=== PATIENT | male | born 1980 | race Caucasian/White ===

== ENCOUNTER 2020-06-16 06:10 | Day surgery (SDC) | payer MEDICARE, MEDICAID ==
[2020-06-11 12:38] LABS: MEAN CORPUSCULAR HEMOGLOBIN 29.6 PG (27.0-31.0); MONOCYTES # (AUTO) 0.5 X10'3 (0-0.9); MONOCYTES % (AUTO) 8.8 % (2-12); PRE OP HEMOGLOBIN 14.6 g/dL (14.0-17.9)
[2020-06-11 12:40] LABS: BASOPHILS # (AUTO) 0.1 X10'3 (0-0.2); BASOPHILS % (AUTO) 0.9 % (0-1); EOSINOPHILS # (AUTO) 0.3 X10'3 (0-0.9); EOSINOPHILS % (AUTO) 4.2 % (0-6); LYMPHOCYTES # (AUTO) 1.7 X10'3 (1.1-4.8); LYMPHOCYTES % (AUTO) 26.8 % (21-51); MEAN CORPUSCULAR HGB CONC 33.4 g/dL (33.0-36.5); MEAN CORPUSCULAR VOLUME 88.5 FL (78-98); MEAN PLATELET VOLUME 10.1 FL (7.4-10.4); NEUTROPHILS # (AUTO) 3.7 X10'3 (1.8-7.7); NEUTROPHILS % (AUTO) 59.3 % (42-75); PRE OP HEMATOCRIT 43.7 % (42.0-52.0); RED BLOOD COUNT 4.94 X10'6 (4.70-6.10); RED CELL DISTRIBUTION WIDTH 13.8 % (11.5-14.5)
[2020-06-11 12:47] LABS: PRE OP PROTIME 10.3 SECONDS (9.0-12.0)
[2020-06-11 12:52] LABS: PRE OP GLUCOSE 94 MG/DL (70-104); PRE OP SODIUM 144 MMOL/L (135-145)
[2020-06-11 12:53] LABS: ALBUMIN 4.1 G/DL (3.4-5.0); ALBUMIN/GLOBULIN RATIO 1.1 (1.1-1.5); ALKALINE PHOSPHATASE 80 IU/L (46-116); BLOOD UREA NITROGEN 14 MG/DL (7-18); BUN/CREATININE RATIO 14.4 (5.4-32.0); CALCIUM 9.2 MG/DL (8.5-10.1); CHLORIDE 106 MMOL/L (99-107); CREATININE 0.97 MG/DL (0.60-1.10); PRE OP ANION GAP 8 (8-16); PRE OP AST 47 U/L (10-37); PRE OP BILIRUB, TOTAL 0.4 MG/DL (0.0-1.0); PRE OP POTASSIUM 3.9 MMOL/L (3.4-5.1); TOTAL CARBON DIOXIDE 30.5 MMOL/L (24-32); TOTAL PROTEIN 7.9 G/DL (6.4-8.2); eGFR 85 ML/MIN
[2020-06-11 12:59] LABS: PRE OP ALT 104 U/L (30-65)
[2020-06-11 14:54] LABS: PRE OP PLATELET COUNT 169 X10'3 (140-440)
[2020-06-11 17:05] LABS: PLATELET FUNCTION (ADP) 124 SECONDS (63-104)
[2020-06-16] VITALS (7 sets, daily range): BP systolic 121–143; BP diastolic 77–93
[~2020-06-16] VITALS: Ht 180.3 cm; Wt 131.2 kg
[~2020-06-16 06:10] MED LIST: BUPR300T86 PO; CEFD300C21 PO; FLUT16SP26 INH; OMEP40CA13 PO; ONDA8TAB65 PO; SUMA25TA9 PO; famotidine 20mg tablet PO ONE; ringers solution, lacted 1,000 ML IV SCH
[2020-06-16] MEDS ORDERED: ringers solution, lacted 1,000 ML IV SCH (06:50)
[2020-06-16] MEDS ORDERED: morphine 4 MG/ML inj SYRINge IV PRN (06:50)
[2020-06-16] MEDS ORDERED: hydrALAZINE 20mg/ml inj. IV PRN (06:50)
[2020-06-16] MEDS ORDERED: fentaNYL/PF 50MCG/1 ML 2ML syringe IV PRN ×2 (06:50)
[2020-06-16] MEDS ORDERED: labetalol 20mg/4ml (5mg/ml) syringe IV PRN (06:50)
[2020-06-16] MEDS ORDERED: ondansetron/PF 4mg/2ml inj IV PRN (06:50)
[2020-06-16] MEDS ORDERED: morphine 2 MG/ML inj. syringe IV PRN (06:50)
[2020-06-16] MEDS ORDERED: cocaine 4% topical solution 4ml bottle ONE (07:05)
[2020-06-16] MEDS ORDERED: cefTAZidime 1gm inj ONE (07:06)
[2020-06-16] MEDS ORDERED: LIDOcaine 1% W/epiNEPHrine 1:100,000 20ml vial ONE (07:06)
[2020-06-16] MEDS ORDERED: oxymetazoline 15 ML nasal spray NS ONE (07:06)
[2020-06-16] MEDS ORDERED: mupirocin 2% ointment 22GM ONE (07:06)
[2020-06-16] MEDS ORDERED: methylPREDNISolone acetate 80mg/ml inj**IM only ONE (07:06)
[2020-06-16] MEDS: oxymetazoline 15 ML nasal spray NS PRN ×2 (07:30→07:40)
[2020-06-16] MEDS ORDERED: MIDAZolam 5mg/5ml vial ONE (07:47)
[2020-06-16] MEDS ORDERED: fentaNYL /PF 50mcg/ml 5ml ampule ONE (07:48)
[2020-06-16] MEDS ORDERED: LIDOcaine 2% (20mg/ml) 5ml vial ONE (07:49)
[2020-06-16] MEDS ORDERED: propofol inj 20 ML IV ONE (07:49)
[2020-06-16] MEDS ORDERED: glycopyrrolate 0.2mg/ml inj ONE (07:50)
[2020-06-16] MEDS ORDERED: rocuronium 10mg/ml inj IV ONE (07:50)
[2020-06-16] MEDS ORDERED: dexamethasone sod phosphate 4mg/ml inj. ONE (07:50)
[2020-06-16] MEDS ORDERED: neostigmine methylsulfate 1 MG/ML 10ml vial ONE (07:50)
[2020-06-16] MEDS ORDERED: ondansetron/PF 4mg/2ml inj ONE (07:50)
[2020-06-16] MEDS ORDERED: sevoflurane 250ml liquid IH ONE (08:17)
--- NOTE | 2020-06-16 10:40 | NUR ---
Received from OR via , accompanied by Anesthesiologist VANESSA and report given by Anesthesiolgist.AWAKENS TO VOICE. VITALS STABLE. DRESSINGS DI. ELDER PAIN.
[2020-06-16] MEDS ORDERED: salt irrigation nasal spray 45 ML SPRAY NS PRN (11:20)
--- NOTE | 2020-06-16 11:50 | NUR ---
AWAKE AND ORIENTED. VITALS STABLE. DRESSING DI. ELDER PAIN. HOME WITH FAMILY AT THIS TIME.
== END 2020-06-16 11:50 | disposition home or self-care (01) ==
LOC: PAS 06:10
PROVIDERS: ATTEND Otolaryngology
DX: J34.2 Deviated nasal septum (principal); J34.3 Hypertrophy of nasal turbinates; J32.8 Other chronic sinusitis; G47.30 Sleep apnea, unspecified; G43.909 Migraine, unspecified, not intractable, without status migrainosus; F32.9 Major depressive disorder, single episode, unspecified; F41.9 Anxiety disorder, unspecified; E66.01 Morbid (severe) obesity due to excess calories; Z68.41 Body mass index [BMI] 40.0-44.9, adult; Z88.8 Allergy status to other drugs, medicaments and biological substances; Z79.01 Long term (current) use of anticoagulants; Z20.828 Contact with and (suspected) exposure to other viral communicable diseases; Z79.899 Other long term (current) drug therapy; Z98.890 Other specified postprocedural states; Z72.89 Other problems related to lifestyle
CPT/HCPCS: 30140; 30520; 31253; 31259; 31267; 36415; 61782; 76937; 80053; 82948; 85025; 85576; 85610; 85730; 87635; 93005; A6402; C9250; C9803; J0713; J1040; J1100; J2001; J2250; J2405; J2704; J2710; J3010; J7040; J7120; 88300; 88304; 88311; A4618; A7000; J3490

== ENCOUNTER 2022-02-10 15:24 | Outpatient (CLI) | payer MEDICARE, MEDICAID ==
[~2022-02-10 15:24] MED LIST changes: -OMEP40CA13 PO; +OMEP40CA21 PO; +ONDA-104 PO; -ONDA8TAB65 PO; -famotidine 20mg tablet PO ONE; -ringers solution, lacted 1,000 ML IV SCH
== END 2022-02-10 23:52 | disposition home or self-care (01) ==
LOC: RAD 15:24
PROVIDERS: ATTEND Family Medicine
DX: R13.14 Dysphagia, pharyngoesophageal phase (principal); K21.9 Gastro-esophageal reflux disease without esophagitis
CPT/HCPCS: 74230